=== PATIENT | female | born 1950 | race Caucasian/White ===

== ENCOUNTER 2017-04-18 17:37 | Emergency (ER) | payer MEDICARE, OTHER ==
[~2017-04-18] VITALS: Ht 160 cm; Wt 78.0 kg
[~2017-04-18 17:37] MED LIST: BACTDS PO; CETI10CA PO; KENC1 TOP
[2017-04-18 17:47] VITALS: Ht 160 cm; Wt 78.0 kg
[2017-04-18] MEDS ORDERED: CEPH500C PO (17:50)
[2017-04-18] MEDS ORDERED: SULF1TAB31 PO (17:50)
--- NOTE | 2017-04-18 18:00 | ERD ---
ER Documentation Chief Complaint Date/Time DATE: 04/18/17 TIME: 17:57 Chief Complaint LEFT HAND POSSIBLE INSECT BITE, REDNESS NOTED HPI Patient is a 67-year-old nondiabetic pleasant female who presents with redness swelling and itchiness to her right hand particularly over her second digit that she has had for 2 days. She states that this is secondary to a witnessed mosquito bite. She denies any fever, bleeding, or drainage. She has itchiness in her hand. She has not taken any medications for this yet. No chest pain or shortness of breath. No paresthesias. ROS All systems reviewed and are negative except as per history of present illness. Medications Home Meds Active Scripts Cephalexin* (Cephalexin*) 500 Mg Capsule, 500 MG PO Q6, #28 CAP Prov:JOHNATHON MULLER PA-C 04/18/17 Sulfamethoxazole/Trimethoprim* (Bactrim Ds* Tablet) 1 Each Tablet, 1 TAB PO BID , #14 TAB Prov:JOHNATHON MULLER PA-C 04/18/17 Cetirizine Hcl* (Zyrtec*) 10 Mg Capsule, 10 MG PO DAILY, #20 TAB.CHEW Prov:DRE GARZA MD 11/22/15 Triamcinolone Acetonide (Triamcinolone Acetonide) 0.1% - 15 Gm Cream.gm., 1 APPLIC TOP BID for 10 Days, TUB 30G Prov:DRE GARZA MD 11/22/15 Sulfamethoxazole-Trimethoprim* (Bactrim* DS) 800-160 Mg Tab, 1 TAB PO BID for 10 Days, TAB Prov:DRE GARZA MD 11/22/15 Allergies Allergies: Coded Allergies: acetaminophen (Verified Allergy, Intermediate, BLISTER IN MOUTH, 11/22/15) PMhx/Soc History of Surgery: No Hx Respiratory Disorders: Yes (ASTHMA) Hx Miscellaneous Medical Probl: Yes (THYROID PROBLEMS; GASTRIC REFLUX DISEASE) Hx Alcohol Use: No Hx Substance Use: No Hx Tobacco Use: No FmHx Family History: No diabetes Physical Exam Vitals Vital Signs Date Time Temp Pulse Resp B/P Pulse Ox O2 Delivery O2 Flow Rate FiO2 04/18/17 17:47 99.7 83 20 136/72 99 Physical Exam General: well developed, well nourished, alert, nontoxic, no distress Head: normocephalic, atraumatic Respiratory: Clear to auscaultation bilaterally, speaks in full sentences, no use of accesory muscles or labored breathing, no rales, ronchi, or wheezing Cardiovascular: RRR, No murmurs Extremities: Left hand: Mild erythema and 1-2+ edema over the dorsal surface of the hand particularly over the second digit with capillary refill less than 2 seconds, no bony abnormalities, sensation to light touch intact, warm to palpation, able to make a fist, radial pulse 2+ Procedures/MDM This is a very pleasant 67-year-old female who presents with cellulitis on her left hand secondary to witnessed mosquito bites per patient. She is not diabetic. She is afebrile and well-appearing. She is in no distress. She was given a prescription for Bactrim and Keflex and I recommended she return in 2 days for a wound check or sooner if she has new or worsening symptoms. Recommended this patient follow up with her primary care doctor within 48 hours or return to the emergency room for any worsening of symptoms. However this time I do believe there is suitable for outpatient management. I answered all their questions and they agreed with the plan and were discharged home. Departure Diagnosis: Primary Impression: Bug bite with infection Condition: Stable Patient Instructions: Cellulitis Additional Instructions: Call your primary care doctor TOMORROW for an appointment during the next 1-2 days.See the doctor sooner or return here if your condition worsens before your appointment time. JOHNATHON MULLER PA-C April 18, 2017 18:00
== END 2017-04-18 17:56 | disposition home or self-care (01) ==
LOC: FTE 17:37 → E/R 17:56
DX: S60.562A Insect bite (nonvenomous) of left hand, initial encounter (principal); J45.909 Unspecified asthma, uncomplicated; W57.XXXA Bitten or stung by nonvenomous insect and other nonvenomous arthropods, initial encounter; Y92.9 Unspecified place or not applicable
CPT/HCPCS: 99284

== ENCOUNTER 2017-09-16 14:39 | Emergency (ER) | payer MEDICARE, OTHER ==
[~2017-09-16] VITALS: Ht 162.6 cm; Wt 83.0 kg
[~2017-09-16 14:39] MED LIST changes: +CEPH500C PO; -KENC1 TOP; +SULF1TAB31 PO; +TRIA15CR55 TOP
[2017-09-16 14:44] VITALS: Ht 162.6 cm; Wt 83.0 kg
[2017-09-16] MEDS ORDERED: SULF1TAB31 PO (15:16)
[2017-09-16] MEDS ORDERED: CEPH-443 PO (15:16)
--- NOTE | 2017-09-16 15:21 | ERD ---
ER Documentation Chief Complaint Chief Complaint lt ankle pain , pt states from insect bite x 2 weeks ago HPI This is a 67-year-old female who presents with left ankle pain and swelling that she has had for 2 weeks. She states that she believes it is secondary to bug bites as she witnessed multiple bugs bite her and she has had this problem in the past because where she lives his next regarding and she states there is a lot of boxes by her. She states the last time she was here she got a prescription for antibiotics since her symptoms were relieved completely. She denies any fever. Denies any swelling of her lips or tongue. Denies any numbness or tingling. She is not diabetic. She is ambulatory. No calf pain or tenderness. No cough or shortness of breath. No recent travel. ROS All systems reviewed and are negative except as per history of present illness. Medications Home Meds Active Scripts Cephalexin* (Keflex*) 500 Mg Capsule, 500 MG PO QID for 7 Days, CAP Prov:JOHNATHON MULLER PA-C 09/16/17 Sulfamethoxazole/Trimethoprim* (Bactrim Ds* Tablet) 1 Each Tablet, 1 TAB PO BID , #14 TAB Prov:JOHNATHON MULLER PA-C 09/16/17 Cephalexin* (Cephalexin*) 500 Mg Capsule, 500 MG PO Q6, #28 CAP Prov:JOHNATHON MULLER PA-C 04/18/17 Sulfamethoxazole/Trimethoprim* (Bactrim Ds* Tablet) 1 Each Tablet, 1 TAB PO BID , #14 TAB Prov:JOHNATHON MULLER PA-C 04/18/17 Cetirizine Hcl* (Zyrtec*) 10 Mg Capsule, 10 MG PO DAILY, #20 TAB.CHEW Prov:DRE GARZA MD 11/22/15 Triamcinolone Acetonide (Triamcinolone Acetonide) 0.1% - 15 Gm Cream.gm., 1 APPLIC TOP BID for 10 Days, TUB 30G Prov:DRE GARZA MD 11/22/15 Sulfamethoxazole-Trimethoprim* (Bactrim* DS) 800-160 Mg Tab, 1 TAB PO BID for 10 Days, TAB Prov:DRE GARZA MD 11/22/15 Allergies Allergies: Coded Allergies: acetaminophen (Verified Allergy, Intermediate, BLISTER IN MOUTH, 11/22/15) PMhx/Soc History of Surgery: No Hx Respiratory Disorders: Yes (ASTHMA) Hx Miscellaneous Medical Probl: Yes (THYROID PROBLEMS; GASTRIC REFLUX DISEASE) Hx Alcohol Use: No Hx Substance Use: No Hx Tobacco Use: No FmHx Family History: No diabetes Physical Exam Vitals Vital Signs Date Time Temp Pulse Resp B/P Pulse Ox O2 Delivery O2 Flow Rate FiO2 09/16/17 14:44 98.6 76 18 132/75 98 Physical Exam Const: [] Head: Atraumatic Eyes: Normal Conjunctiva ENT: Normal External Ears, Nose and Mouth. Neck: Full range of motion..~ No meningismus. Resp: Clear to auscultation bilaterally Cardio: Regular rate and rhythm, no murmurs Ext: Left ankle has some mild edema over the lateral malleolus with mild erythema and warmth, pedal pulses 2+, patient is ambulatory, sensation to light touch is intact, capillary refill less than 2 seconds, no bony abnormalities, no bleeding or drainage Procedures/MDM 67-year-old female presents with mild localized cellulitis to her left lateral ankle. Patients is alert, oriented, well appearing, and in no distress with normal vital signs. There is no fever, tachycardia, or tachypnea. She states she has had this in the past and has a good relief of Bactrim and Keflex were given prescription for. Patient counseled regarding my diagnostic impression and care plan. Prior to discharge all questions answered. Pt agrees with treatment plan and understands strict return precautions. Pt is instructed to follow up with primary care provider within 24-48 hours. Precautionary instructions provided including instructions to return to the ER if not improving or for any worsening or changing symptoms or concerns. Departure Diagnosis: Primary Impression: Cellulitis Condition: Stable Patient Instructions: Insect Bite Additional Instructions: Call your primary care doctor TOMORROW for an appointment during the next 1-2 days.See the doctor sooner or return here if your condition worsens before your appointment time. JOHNATHON MULLER PA-C Sep 16, 2017 15:21
== END 2017-09-16 15:30 | disposition home or self-care (01) ==
LOC: FTE 14:39
DX: L03.116 Cellulitis of left lower limb (principal); J45.909 Unspecified asthma, uncomplicated
CPT/HCPCS: 99284

== ENCOUNTER 2018-06-12 14:04 | Emergency (ER) | END 2018-06-12 17:34 | disposition home or self-care (01) ==

== ENCOUNTER 2018-06-14 14:37 | Emergency (ER) | END 2018-06-14 17:08 | disposition home or self-care (01) ==